=== PATIENT | female | born 1970 | race Two or more races ===

== ENCOUNTER 2019-08-25 07:43 | Outpatient (CLI) | payer OTHER | END 2019-08-25 07:47 | disposition home or self-care (01) | LOC: SONOGRAMA 07:43 | DX: E04.1 Nontoxic single thyroid nodule (principal) ==

== ENCOUNTER 2025-06-01 10:40 | Outpatient (CLI) | payer OTHER | END 2025-06-01 10:43 | disposition home or self-care (01) | LOC: SONOGRAMA 10:40 | PROVIDERS: ATTEND Pathology Anatomic Pathology & Clinical Pathology | DX: D34 Benign neoplasm of thyroid gland (principal); E07.89 Other specified disorders of thyroid; E04.1 Nontoxic single thyroid nodule ==